=== PATIENT | female | born 1995 | race African-American/Black ===

== ENCOUNTER 2023-07-19 17:45 | Emergency (ER) | payer OTHER ==
[~2023-07-19] VITALS: Ht 157.5 cm; Wt 72.6 kg
== END 2023-07-19 20:01 | disposition home or self-care (01) ==
LOC: ER 17:46
DX: M25.512 Pain in left shoulder (principal); Z91.018 Allergy to other foods
CPT/HCPCS: 73030; 96372; 99284; J1885